=== PATIENT | male | born 1950 | race Caucasian/White ===

== ENCOUNTER 2018-05-19 10:38 | Day surgery (SDC) | payer BC, MEDICARE ==
[~2018-05-19] VITALS: Ht 172.7 cm; Wt 98.3 kg
[~2018-05-19 10:38] MED LIST: ASPI325B; AZIT250 PO; CITA20 PO; CLOP75; CLOP75 PO; EZET10-20 PO; FAMO20 PO; HYDACE10B PO; IBUP400; MORP30ER PO; NAPR500 PO; NITR.4SL; NITR.4SL SL; OXYACE5T PO; OXYC5 PO; PROCODE120 PO; RAMI5; RAMI5 PO; SIMV40 PO; VYTORIN; WARF10 PO; WARF5 PO; WARF7.5 PO
[2018-05-19] MEDS ORDERED: METO25 PO (11:15)
== END 2018-05-19 12:27 | disposition home or self-care (01) ==
LOC: ORSCSDS 10:38
PROVIDERS: Surgery
PROC: 0DBP8ZX Excision of Rectum, Via Natural or Artificial Opening Endoscopic, Diagnostic (ICD-10-PCS; principal; 2018-05-19 11:45)
DX: Z12.11 Encounter for screening for malignant neoplasm of colon (principal); Z86.010 Personal history of colon polyps; D12.8 Benign neoplasm of rectum; I25.10 Atherosclerotic heart disease of native coronary artery without angina pectoris; I10 Essential (primary) hypertension; E78.5 Hyperlipidemia, unspecified; Z79.01 Long term (current) use of anticoagulants; Z79.899 Other long term (current) drug therapy
CPT/HCPCS: 88305; J7120

== ENCOUNTER → 2020-10-02 | Outpatient (CLI) | payer OTHER ==
[~2020-10-02] MED LIST changes: +METO25; +METO25 PO; +Simvastatin20 MG PO
== END | disposition home or self-care (01) ==
LOC: PLD 08:55 → LAB SHORT 08:55
DX: L08.9 Local infection of the skin and subcutaneous tissue, unspecified (principal)
CPT/HCPCS: 87070; 87075; 87077; 87186; 87205

== ENCOUNTER → 2021-03-23 | Outpatient (CLI) | payer OTHER ==
[2021-03-23 11:08] LABS: International Normalized Ratio 1.11; Prothrombin Time Results 11.6 Sec (9.7-11.5)
== END ==
LOC: LAB SHORT 10:29 → LAB 10:29
PROVIDERS: Physician Assistant
DX: Z09 Encounter for follow-up examination after completed treatment for conditions other than malignant neoplasm (principal); Z86.711 Personal history of pulmonary embolism
CPT/HCPCS: 85610

== ENCOUNTER → 2021-04-01 | Outpatient (CLI) | payer OTHER | END | disposition home or self-care (01) | LOC: LAB SHORT 12:23 | DX: Z20.822 Contact with and (suspected) exposure to COVID-19 (principal) | CPT/HCPCS: U0003 ==

== ENCOUNTER → 2024-03-01 | Outpatient (CLI) | payer MEDICARE ==
[2024-03-01 16:13] LABS: Bun/Creatinine Ratio 13.3 (12.0-20.0); Creatinine, Blood 1.35 mg/dL (0.60-1.20); Potassium, Blood 4.3 mmol/L (3.5-5.5)
[2024-03-01 16:16] LABS: International Normalized Ratio 1.5; Prothrombin Time Results 15.6 Sec (9.7-11.5)
== END | disposition home or self-care (01) ==
LOC: LAB 13:30 → LAB SHORT 13:30
PROVIDERS: Physician Assistant
DX: N17.9 Acute kidney failure, unspecified (principal); Z79.01 Long term (current) use of anticoagulants
CPT/HCPCS: 80048; 85610

== ENCOUNTER 2024-08-25 11:01 | Emergency (ER) | payer MEDICARE ==
[~2024-08-25] VITALS: Ht 172.7 cm; Wt 86.2 kg
[2024-08-25] MEDS ORDERED: LORazepam 1 MG Tab PO ONE (11:15)
[2024-08-25 11:23] LABS: BASOPHILS ABSOLUTE AUTO 0.03 K/mm3 (0.00-0.23); BASOPHILS PERCENT AUTO 0 % (0-2); EOSINOPHILS PERCENT AUTO 1 % (0-6); Hematocrit 45.4 % (37.0-53.0); Hemoglobin 15.1 g/dL (13.5-17.5); IMMATURE GRAN ABSOLUTE AUTO 0.03 K/mm3 (0.00-0.10); IMMATURE GRAN PERCENT AUTO 0 % (0-1); LYMPHOCYTES PERCENT AUTO 10 % (21-46); MONOCYTES ABSOLUTE AUTO 0.49 K/mm3 (0.16-1.47); MONOCYTES PERCENT AUTO 6 % (4-13); Mean Corpuscular HGB 32.2 pg (26.0-34.0); Mean Corpuscular HGB Conc 33.3 g/dL (31.5-36.5); Mean Corpuscular Volume 97 fL (80-100); Mean Platelet Volume 9.9 fL (9.1-12.4); NEUTROPHILS ABSOLUTE AUTO 6.26 K/mm3 (1.96-9.15); NEUTROPHILS PERCENT AUTO 81 % (41-73); Platelet Count 181 K/mm3 (150-400); RDW Standard Deviation 49.4 fL (35.1-46.3); Red Blood Cell Count 4.69 M/mm3 (4.30-5.90); White Blood Cell Count 7.71 K/mm3 (4.00-11.30)
[2024-08-25 11:37] LABS: International Normalized Ratio 1.62; Prothrombin Time Results 16.7 Sec (9.7-11.5)
[2024-08-25 11:57] LABS: Albumin, Blood 3.3 g/dL (3.4-5.0); Albumin/Globulin Ratio 0.8 (0.8-1.8); Bilirubin, Total 2.5 mg/dL (0.1-1.0); Bun/Creatinine Ratio 14.4 (12.0-20.0); Calcium, Blood 8.8 mg/dL (8.5-10.1); Creatinine, Blood 1.53 mg/dL (0.60-1.20); Globulin, Blood 3.9 g/dL (2.2-4.0); Potassium, Blood 4.3 mmol/L (3.5-5.5); Total Protein, Blood 7.2 g/dL (6.4-8.2)
[2024-08-25] MEDS ORDERED: Azithromycin 250 MG Tab PO ONE (13:05)
[2024-08-25] MEDS ORDERED: NS 1,000 ML IV SCH (13:05)
[2024-08-25] MEDS ORDERED: CefTRIAXone Sodium 2,000 MG in NS 100 ML IV ONE (13:05)
[2024-08-25] MEDS ORDERED: Dexamethasone Sod Phos 10 MG/ML 1ML VIAL IV ONE (13:30)
[2024-08-25] MEDS ORDERED: Ativan1 MG PO (13:38)
[2024-08-25] MEDS ORDERED: DOXY100 PO (13:38)
[2024-08-25 14:27] VITALS: BP 143/63
[2024-08-25] MEDS ORDERED: Acetaminophen 500 MG Tab PO ONE (14:40)
== END 2024-08-25 14:45 | disposition home or self-care (01) ==
LOC: ER 11:01
PROVIDERS: Emergency Medicine
DX: J18.9 Pneumonia, unspecified organism (principal); J43.9 Emphysema, unspecified; I25.10 Atherosclerotic heart disease of native coronary artery without angina pectoris; I25.2 Old myocardial infarction; Z95.5 Presence of coronary angioplasty implant and graft; Z79.01 Long term (current) use of anticoagulants; Z79.899 Other long term (current) drug therapy
CPT/HCPCS: 71046; 71260; 80053; 83880; 84484; 85025; 85610; 93005; 93010; 96374-59; 96375-59; 99285-25; A9270; J0696; J1100; J7030; Q9967